=== PATIENT | female | born 2000 | race Two or more races ===

== ENCOUNTER 2019-01-20 05:04 | Inpatient (IN) ==
[2019-01-20] MEDS: LACTATED RINGERS 1,000 ML IV SCH ×5 (05:58→20:41)
[2019-01-20 06:07] LABS: Basophils % 0.1 % (0.0-0.8); Eosinophils % 0.1 % (0.00-10.9); Hematocrit 33.4 VOL% (35.7-47.0); Hemoglobin 10.3 GM/DL (12.0-16.0); Immature Granulocytes % 0.5 %; Immature Granulocytes Absolute 0.07 #; Lymphocytes # 1.5 10*3/uL (1.4-4.0); Lymphocytes % 10.2 % (21.3-54.2); Mean Corpuscular HGB Conc 30.8 GM/DL (32-36); Mean Corpuscular Volume 84.1 FL (87-102); Mean Platelet Volume 12.4 FL (9.6-12.0); Neutrophils % 81.1 % (38.7-73.9); Platelet Count 123 T/CUMM (130-400); Red Blood Count 3.97 MC/CUMM (3.8-5.5); Red Cell Distribution Width 14.8 % (9.3-17.3); White Blood Count 14.9 T/CUMM (4-12)
[2019-01-20] MEDS ORDERED: BUTORPHANOL 2 MG/ML VIAL IV PRN (06:13)
[2019-01-20] MEDS ORDERED: ONDANSETRON 4 MG/2 ML VIAL IV PRN ×2 (06:14→06:16)
[2019-01-20] MEDS ORDERED: ONDANSETRON 4 MG/2 ML VIAL IV ONE (06:18)
[2019-01-20] MEDS ORDERED: FAMOTIDINE 20 MG/2 ML VIAL IV ONE (06:18)
[2019-01-20] MEDS ORDERED: CITRIC ACID/SODIUM CITRATE 30 ML UDCUP PO ONE (06:18)
[2019-01-20] MEDS ORDERED: ePHEDrine 50 MG/ML AMP IV PRN (06:18)
[2019-01-20] MEDS ORDERED: NALOXONE 0.4 MG/ML VIAL IV PRN (06:18)
[2019-01-20] MEDS ORDERED: LACTATED RINGERS 1,000 ML IV ONE (06:18)
[2019-01-20] MEDS ORDERED: diphenhydrAMINE 50 MG/1 ML VIAL IV PRN (06:18)
[2019-01-20] MEDS ORDERED: AMPICILLIN 2,000 MG VIAL ONE (06:28)
[2019-01-20] MEDS ORDERED: fentaNYL 2 MCG/ROPIV 0.2% EPID 100 ML EPIDURAL SCH (06:30)
[2019-01-20] MEDS ORDERED: AMPICILLIN INJ 2,000 MG in SODIUM CHLORIDE 0.9% 100 ML IV SCH (07:00)
[2019-01-20] MEDS ORDERED: OXYTOCIN/LR 20 UNIT/1,000 ML BAG IV ONE ×2 (07:06→10:39)
[2019-01-20] MEDS ORDERED: LIDOCAINE 1% 50 ML VIAL ONE (07:15)
[2019-01-20] MEDS ORDERED: MEPERIDINE 50 MG/1 ML VIAL ONE (07:16)
[2019-01-20] MEDS ORDERED: miSOPROStoL 200 MCG TABLET ONE (07:16)
[2019-01-20 07:21] LABS: Alanine Aminotransferase 13 U/L (13-56); Albumin 2.7 G/DL (3.4-5.0); Alkaline Phosphatase 271 U/L (45-117); Aspartate Amino Transferase 19 U/L (0-37); Bilirubin,Total < 0.39 MG/DL (0.2-1.0); Blood Urea Nitrogen 5 MG/DL (7-18); Calcium 8.4 MG/DL (8.5-10.1); Estimated Glom Filtration Rate 122 ML/MIN; Glucose 91 MG/DL (74-106); Osmolality,Calculated 277.3 MOS/KG (273-304); Total Protein 6.9 G/DL (6.4-8.3)
[2019-01-20] MEDS ORDERED: miSOPROStoL 200 MCG TABLET RECTAL ONE (07:44)
[2019-01-20] MEDS ORDERED: IBUPROFEN 800 MG TABLET PO PRN (16:19)
[2019-01-20] MEDS ORDERED: IBUPROFEN 800 MG TABLET ONE (16:21)
[2019-01-21 06:25] LABS: Basophils % 0.1 % (0.0-0.8); Eosinophils % 0.3 % (0.00-10.9); Hematocrit 24.1 VOL% (35.7-47.0); Hemoglobin 7.4 GM/DL (12.0-16.0); Immature Granulocytes % 0.6 %; Immature Granulocytes Absolute 0.06 #; Lymphocytes # 1.9 10*3/uL (1.4-4.0); Lymphocytes % 17.8 % (21.3-54.2); Mean Corpuscular HGB Conc 30.7 GM/DL (32-36); Mean Platelet Volume 13.2 FL (9.6-12.0); Monocytes % 7.6 % (1.7-12.7); Neutrophils % 73.6 % (38.7-73.9); Platelet Count 101 T/CUMM (130-400); Red Blood Count 2.87 MC/CUMM (3.8-5.5); Red Cell Distribution Width 14.9 % (9.3-17.3); White Blood Count 10.4 T/CUMM (4-12)
[2019-01-21 07:10] LABS: Platelet Estimate Decreased; Polychromasia Few
[2019-01-21] MEDS: DOCUSATE SODIUM 100 MG CAPSULE PO SCH ×2 (09:07→21:54)
[2019-01-21] MEDS: FERROUS SULFATE 325 MG TABLET PO SCH ×2 (09:07→21:54)
[2019-01-21 15:00] LABS: Basophils % 0.2 % (0.0-0.8); Eosinophils % 0.3 % (0.00-10.9); Hematocrit 24.7 VOL% (35.7-47.0); Hemoglobin 7.6 GM/DL (12.0-16.0); Immature Granulocytes % 0.6 %; Immature Granulocytes Absolute 0.06 #; Lymphocytes # 1.8 10*3/uL (1.4-4.0); Lymphocytes % 16.8 % (21.3-54.2); Mean Corpuscular HGB Conc 30.8 GM/DL (32-36); Monocytes % 6.8 % (1.7-12.7); Neutrophils % 75.3 % (38.7-73.9); Platelet Count 109 T/CUMM (130-400); Red Blood Count 2.94 MC/CUMM (3.8-5.5); Red Cell Distribution Width 15.1 % (9.3-17.3); White Blood Count 10.5 T/CUMM (4-12)
[2019-01-22 07:51] VITALS: BP 109/69
[2019-01-22] MEDS: FERROUS SULFATE 325 MG TABLET PO SCH (08:47)
[2019-01-22] MEDS: DOCUSATE SODIUM 100 MG CAPSULE PO SCH (08:47)
[2019-01-22] MEDS ORDERED: INFLUENZA VIRUS VACCINE 0.5 ML SYRINGE IM ONE (09:03)
== END 2019-01-22 12:35 | disposition home or self-care (01) | DRG 560 ==
LOC: N.LDOUT 05:04 → N.LD 05:06 → N.OB 11:12
PROVIDERS: ADMIT Specialist; ATTEND Specialist